=== PATIENT | female | born 1955 | race Caucasian/White ===

== ENCOUNTER 2018-07-18 08:08 | Outpatient (CLI) | payer BC ==
--- NOTE | 2018-07-18 08:45 | RAD ---
EXAM: LEFT SHOULDER THREE VIEWS: History: Left shoulder and loss of range of motion. FINDINGS: AC joint arthrosis and mild degenerative changes of the glenohumeral joint. No fracture or dislocatio n. IMPRESSION: Degenerative changes without fracture or dislocation. POS: DENNIS
--- NOTE | 2018-07-18 09:18 | RAD ---
EXAM: RIGHT SHOULDER THREE VIEWS: History: Right shoulder pain and limited range of motion. FINDINGS: Mild degenerative changes of the AC joint and glenohumeral joint. Mild right apical pleural thickenin g. IMPRESSION: No fracture or dislocation. Mild degenerative changes. POS: DENNIS
== END 2018-07-18 08:09 | disposition home or self-care (01) ==
LOC: BICRAD 08:08
PROVIDERS: ATTEND Internal Medicine Rheumatology
DX: M25.511 Pain in right shoulder (principal); M25.512 Pain in left shoulder; M54.2 Cervicalgia; M19.011 Primary osteoarthritis, right shoulder; M19.012 Primary osteoarthritis, left shoulder

== ENCOUNTER → 2019-07-19 | Day surgery (SDC) | payer BC ==
[2019-07-18 10:55] VITALS: BMI 26.5
[~2019-07-19] MED LIST: Bupivacaine PF 0.75% SDV 10 ML ONE; CEFAZOLIN 1 GM VIAL ONE; Cyclopentolate 1% Opth Drop 2 ML BOT ONE; Enoxaparin Sodium 30 MG/0.3 ML SYRINGE ONE; Fentanyl 100 MCG/2 ML VIAL ONE; Fluorouracil 100 MG, Enoxaparin Sodium 25 MG, EPINEPHrine 0.3 MG in Ophthalmic Irrigati... IRR SCH; Indocyanine Green 25 MG/10 ML VIAL ONE; Lidocaine 1% PF 5 ML VIAL ONE; Lidocaine 4% PF 5 ML AMP ONE; Maxitrol 0.1% Opth Oint 3.5 GM TUBE ONE; PROPOFOL 20 ML ONE; Phenylephrine 2.5% Ophth Soln 5 ML BOT ONE; Triamcinolone 40 MG/ML VIAL ONE
--- NOTE | 2019-07-19 09:21 | OP ---
DATE OF PROCEDURE: 07/19/2019 PREOPERATIVE DIAGNOSIS: Epiretinal membrane, left eye. POSTOPERATIVE DIAGNOSIS: Epiretinal membrane, left eye. PROCEDURE PERFORMED: Pars plana vitrectomy and membrane peel, left eye. ANESTHESIA: Local monitored anesthesia care. PROCEDURE IN DETAIL: The patient was identified in the preoperative holding area. Appropriate informed consent for the planned surgical procedure on the left eye had been obtained. The patient was transported to the operative suite. Appropriate cardiopulmonary monitoring was established. Local anesthesia obtained with retrobulbar block. The patient was prepped and draped in the usual sterile manner for ophthalmic surgery on the left eye. Lid speculum was placed in the left eye. A 27-gauge trocars placed in the conjunctiva and sclera supratemporally, inferotemporally, and supranasally. Infusion line was placed inferotemporally. Light pipe and vitreous cutter were inserted into the eye. Core vitrectomy was performed. Indocyanine green dye was infused on the posterior pole x1, identifying the epiretinal membrane. This was elevated using a membrane scraper in the inferonasal periphery. The membrane was peeled across the macula in one sheet. Indirect ophthalmoscopy was used to exam the retina 360 degrees. No holes, breaks, or tears were identified. Prophylactic laser was placed behind the sclerotomy sites. Trocars removed. Eye was noted to retain pressure well. Retrobulbar Kenalog and subconjunctival Ancef were placed. Antibiotic ointment placed. The eye was patched and shielded. The patient was taken to postoperative recovery unit in good condition, having suffered no immediate perioperative complications. The patient was instructed to keep patch and shield on, avoid lifting or bending, followup appointment with Dr. Garza. Job ID: [id number]
== END ==
LOC: SDC 06:30
PROVIDERS: ATTEND Ophthalmology Retina Specialist
PROC: 08NF3ZZ Release Left Retina, Percutaneous Approach (ICD-10-PCS; principal; 2019-07-19)
PROC: 08T53ZZ Resection of Left Vitreous, Percutaneous Approach (ICD-10-PCS; principal; 2019-07-19)
DX: H35.372 Puckering of macula, left eye (principal); E03.9 Hypothyroidism, unspecified; I10 Essential (primary) hypertension; Z87.891 Personal history of nicotine dependence; Z79.899 Other long term (current) drug therapy
CPT/HCPCS: J0171; J0690; J1650; J2001; J2704; J3010; J3301; J3490; J9190